=== PATIENT | male | born 1945 | race Caucasian/White ===

== ENCOUNTER 2018-04-27 05:49 | Inpatient (IN) ==
[2018-04-27] MEDS ORDERED: Bupivacaine/Dextrose 0.75% Inj 2 ML Ampul ONE (06:56)
[2018-04-27] MEDS ORDERED: Dexamethasone Inj 20 MG/5 ML Vial ONE (07:05)
[2018-04-27] MEDS ORDERED: Sodium Chlor 0.9% Inj 250 ML ONE (07:05)
[2018-04-27] MEDS ORDERED: Dexamethasone Inj 20 MG/5 ML Vial IV.PUSH ONE (07:12)
[2018-04-27] MEDS ORDERED: Chlorhexidine Gluconate 2% 1 Pack (2 Cloths) TOPICAL SCH (07:15)
[2018-04-27] MEDS ORDERED: Sodium Chlor 0.9% Inj 73.07 ML, Ropivacaine 0.5% PF Inj 24.63 ML, Ketorolac Inj 30 MG, ... P-ARTICULR SCH ×5 (07:15)
[2018-04-27] MEDS ORDERED: Metoprolol Tartrate 25 MG Tablet PO SCH (07:15)
[2018-04-27] MEDS ORDERED: Chlorhexidine 4% Topical 120 APPLIC/120 ML Bottle TOPICAL SCH (07:15)
[2018-04-27] MEDS ORDERED: Bupivacaine Liposomal PF 1.3% Inj 20 ML Vial ONE (07:19)
[2018-04-27] MEDS ORDERED: Propofol Inj 500 MG/50 ML Vial ONE (07:23)
[2018-04-27] MEDS: Vancomycin Inj 1,000 MG in Sodium Chlor 0.9% Inj 250 ML IV.SIG SCH ×2 (07:37→21:20)
[2018-04-27] MEDS ORDERED: ceFAZolin 2 GM Premix Inj 2 GM/100 ML BAG IV.SIG SCH (08:00)
[2018-04-27] MEDS ORDERED: TRANEXAMIC ACID IV.SIG SCH (08:00)
[2018-04-27] MEDS ORDERED: Sodium Chlor 0.9% Inj 500 ML IV.SIG SCH (08:00)
[2018-04-27] MEDS ORDERED: SODIUM CHLOR 0.9% IV.SIG SCH (08:00)
[2018-04-27] MEDS ORDERED: Morphine Inj 4 MG/ML Vial IV.PUSH PRN (10:01)
[2018-04-27] MEDS ORDERED: Aluminum/Magnesium/Simethacone Susp 30 ML UDC PO PRN (10:01)
[2018-04-27] MEDS ORDERED: Post-op Orders (for Pharmacy) OTHER STA (10:01)
[2018-04-27] MEDS ORDERED: Bisacodyl 10 MG Supp RECTAL PRN (10:01)
--- NOTE | 2018-04-27 10:09 | P.OP ---
Preoperative Diagnosis: Left knee severe arthritis. Left femoral shaft fracture, healed. Postoperative Diagnosis: Same Date of procedure: 04/27/18 Procedure: Left total knee arthroplasty Anesthesia: GETA Surgeon: Cody Persaud MD Glass Enamel Mixer: JAYY Alas The surgical procedure was assisted by my Advanced Registered Nurse Practitioner. My BILLET EXAMINER presence was necessary throughout this case for the manipulation and positioning of the surgical extremity. My BILLET EXAMINER was assisting me throughout the duration of this procedure. The skill set of an Advance Registered Nurse Practitioner was medically necessary to complete this procedure. During the surgical case, the cardiovascular surgical tech was working at the back table and the Advance Registered Nurse Practitioner was directly assisting me. Operation and Findings: IMPLANTS: DePuy Attune: Patella: size 38. Femur, posterior stabilized size 7. Tibia, rotating platform size 7. Tibial insert, rotating platform, posterior stabilized size 5 mm thickness. ESTIMATED BLOOD LOSS: 100 cc TOURNIQUET TIME: 50 minutes at 250 mmHg pressure. JUSTIFICATION FOR PROCEDURE: The patient has end-stage osteoarthritis to the knee. There is an attached conservative measures pathway form in the chart that describes the nonoperative measures that were undertaken prior to consideration of surgical management. The patient understood the risks and benefits of surgical management. See my office notes for further details. Additionally note that we created patient specific instrumentation for this patient because he had the previous femur fracture which was midshaft and well-healed but in a displaced position which would have potentially prevented us from obtaining appropriate alignment had we used standard jigs. PROCEDURE: The patient was brought back to the operative theatre. Adequate anesthesia was obtained. The patient received intravenous vancomycin. The patient had no reaction to the vancomycin. Additionally we gave a test dose of Ancef. The patient developed a rash on the forehead with no wheezing per the anesthesia provider. We did not continue with the remaining portion of the Ancef. After the surgery I added Ancef to the patient's list of allergies. The lower extremity was prepped and draped in the usual sterile fashion.The leg was exsanguinated, the tourniquet was raised. A standard anterior incision was performed followed by medial parapatellar arthrotomy was performed. End-stage arthritis was identified. Osteotomy of the patella was performed. We drilled holes for the patella. We trialed the patella component. We placed the patient specific femoral component onto the femur. We use this to create our distal femoral cut. We went between a size 8 and size 7 femoral component. The size 7 gave better anterior to posterior dimensions with the appropriate posterior femoral cut. It was a little small on the medial to lateral portion of the femur. However, we felt that the 8 did not allow us to cut enough posterior femoral condyle so we decided to go with the size 7. We completed the remaining chamfer block cuts and then we also cut the central portion for the PCL as well. The remnants of the ACL and PCL were resected. Osteotomy of the proximal tibia was performed, resecting 5 mm off of the medial side using the patient specific instrumentation. We resected the remnants of the menisci and removed osteophytes off of the femur and tibia. We then trialed the knee. We punched the tibia for the keel, and then used standard technique to cement in components. Excess cement was removed. We trialed the knee again and the final polyethylene thickness was chosen to provide extension to 0 degrees, and flexion of 140 degrees to gravity. The ligaments were appropriately balanced. Lateral release was necessary to obtain excellent patellofemoral tracking. The tourniquet was released and adequate hemostasis was obtained. An intra- articular injection of a ropivacaine cocktail was injected. The posterior knee was inspected for excess cement, which was removed. The final polyethylene was put into position after thorough irrigation. We then closed deep fascia with a #2 Stratafix followed by skin with 2-0 Vicryl followed by Dermabond dressing. Postop plan is to weight-bear as tolerated. DVT prophylaxis will be performed with SCDs, JACY hose, early mobilization, and Lovenox followed by aspirin.
[2018-04-27] MEDS ORDERED: fentaNYL Citrate Inj 100 MCG/2 ML Ampul ONE (10:40)
[2018-04-27] MEDS: Sod Chloride 0.9% Inj 1,000 ML IV.CONT SCH (10:55)
[2018-04-27] MEDS ORDERED: SODIUM CHLOR 0.9% IV.SIG ONE (11:00)
[2018-04-27] MEDS ORDERED: TRANEXAMIC ACID IV.SIG ONE (11:00)
[2018-04-27] MEDS ORDERED: *morphine SULFATE 4 MG/ML PERIprocedure ONLY ONE ×3 (11:04→11:47)
--- NOTE | 2018-04-27 11:09 | XR ---
EXAM DATE: 04/27/2018 11:01 AM EDT AGE/SEX: 72 years / Male INDICATIONS: Post op left knee surgery. CLINICAL DATA: This is the patient's initial encounter. Patient reports that signs and symptoms have been present for 1 day and indicates a pain score of 0/10. MEDICAL/SURGICAL HISTORY: Alzheimer's disease. None. COMPARISON: [facility], CT KNEE W/O CONTRAST, LEFT, 02/01/2018. . FINDINGS: Patient is status post left total knee arthroplasty. Tibial and femoral components appear well seated . There is subcutaneous air identified. Popliteal artery calcifications are seen. CONCLUSION: Postoperative changes are noted. Electronically signed by: Brandon Crandall MD 04/27/2018 11:08 AM EDT
[2018-04-27] MEDS ORDERED: Glycopyrrolate Inj 1 MG/5 ML Syringe IV.PUSH ONE (12:00)
[2018-04-27] MEDS ORDERED: Lidocaine PF 1% Inj 5 ML Syringe INFILTRATN ONE (12:00)
[2018-04-27] MEDS ORDERED: Neostigmine Inj 5 MG/5 ML Syringe IV.PUSH ONE (12:00)
--- NOTE | 2018-04-27 15:32 | P.DCO ---
- Physical Therapy Physical Therapy: Gait training, Transfer training, bed to chair Knee: Total knee Left Lower Extremity Weight Bearing: Weight bearing as tolerated Left Lower Extremity Range of Motion: Active ROM - Nursing Nursing: Elie laguerre Dressing changes: Do not change dressing Additional instructions: First dressing change in the office - Certification Need for Home Health services: I have seen patient Alex Burris Page on 04/27/18. My clinical findings support the need for the requested home health care services because: Need for Home Health Services: Limited ability to care for self, High risk of falls Homebound Certification: I certify that my clinical findings support that this patient is homebound because: Homebound Certification: Post-op weakness, Unsteady gait/balance
[2018-04-27] MEDS ORDERED: Vancomycin Inj 1,000 MG in Sodium Chlor 0.9% Inj 250 ML IV.SIG SCH (16:00)
[2018-04-27 16:52] VITALS: O2SAT 98
[2018-04-27] MEDS ORDERED: Zolpidem Tartrate 5 MG Tablet PO PRN (21:00)
[2018-04-27] MEDS: Senna/Docusate Sodium 8.6/50 MG Tablet PO SCH (21:12)
[2018-04-27] MEDS: Multivitamin/Minerals Therapeutic Tablet PO SCH (21:12)
[2018-04-28 00:29] VITALS: RESP 17
[2018-04-28] MEDS: Sod Chloride 0.9% Inj 1,000 ML IV.CONT SCH ×2 (00:32→11:23)
[2018-04-28 06:04] LABS: Hematocrit 41.8 % (39.0-51.0); Hemoglobin 14.1 gm/dL (13.0-17.0)
[2018-04-28 06:11] VITALS: BP 156/87; PULSE 76
--- NOTE | 2018-04-28 07:14 | P.PNOP ---
Subjective Interval history: The patient is resting in bed comfortably in no acute distress. The patient reports minimal pain to the left knee. The patient states he has been ambulatory. The patient reports he would like to go home today with home health. Physical Exam Vital signs: Vital Signs 04/27/18 07:21 04/27/18 10:32 04/27/18 10:45 Temperature 97.4 F L Pulse Rate 67 78 75 Respiratory Rate 12 13 Blood Pressure 117/70 113/69 Pulse Oximetry 99 100 100 04/27/18 11:00 04/27/18 11:15 04/27/18 11:30 Temperature Pulse Rate 70 73 69 Respiratory Rate 17 13 13 Blood Pressure 119/70 121/73 129/63 Pulse Oximetry 100 98 100 04/27/18 12:00 04/27/18 13:00 04/27/18 14:44 Temperature Pulse Rate 78 81 93 H Respiratory Rate 16 23 24 Blood Pressure 121/67 144/73 H 143/78 H Pulse Oximetry 100 100 100 04/27/18 15:49 04/27/18 16:00 04/27/18 20:00 Temperature 97.9 F 97.4 F L Pulse Rate 92 H 79 77 Respiratory Rate 24 18 18 Blood Pressure 130/70 144/83 H 156/81 H Pulse Oximetry 98 98 04/28/18 00:00 04/28/18 04:00 Temperature 97.3 F L 97.3 F L Pulse Rate 72 76 Respiratory Rate 17 17 Blood Pressure 159/78 H 156/87 H Pulse Oximetry 98 98 Intake & Output 04/27/18 04/28/18 04/28/18 18:59 06:59 18:59 Intake Total 2720.34 / 2720.34 250 / 250 Output Total 700 / 700 575 / 575 Balance 2019.34 / 2019.34 -325 / -325 Weight 81.2 kg Intake: IV 1780.34 / 1780.34 250 / 250 NS Inj 1,000 ML @ 80 mls/hr IV. 314 / 314 CONT .[id number] BETTY Rx#:[id number] LR 1000 mL Inj 1,000 ML @ 30 1000 / 1000 mls/hr IV.SIG .Q24H BETTY Rx#: [id number] Cyklokapron Inj 817 MG In NS 216.34 / 216.34 Inj 100 ML @ 200 mls/hr IV.SIG ONCE ONE Rx#:[id number] Vancomycin Inj 1,000 MG In NS 250 / 250 250 / 250 Inj 250 ML @ 200 mls/hr IV.SIG Q12H BETTY Rx#:[id number] Oral 840 / 840 Anesthesia Amount 100 / 100 Output: Urine 600 / 600 575 / 575 Estimated Blood Loss 100 / 100 Other: # Voids 2 1 Date of Last Bowel Movement 04/26/18 04/27/18 Narrative: The patient's dressing is has small bloody drainage and is intact. EHL/TA/G are intact. 2+ pedal pulse. The patient's calf is soft and nontender. Sensation is intact to light touch distally. Knee immobilizer is in place. Results - Labs CBC & Chem 7: 04/28/18 05:18 Laboratory Results - last 24 hr 04/27/18 04/28/18 06:58 05:18 Hgb 14.1 Hct 41.8 Blood Type A Positive Blood Type Recheck Required Antibody Screen Negative - Imaging Impressions Knee X-Ray 04/27/18 10:02 Patient is status post left total knee arthroplasty. Tibial and femoral components appear well seated. There is subcutaneous air identified. Popliteal artery calcifications are seen. CONCLUSION: Postoperative changes are noted. - Procedures Left total knee arthroplasty Assessment and Plan - Problem List (1) Primary localized osteoarthritis of left knee Code(s): M17.12 - Unilateral primary osteoarthritis, left knee Status: Acute (2) Status post total knee replacement, left Code(s): Z96.652 - Presence of left artificial knee joint Status: Acute - Assessment and Plan POD #1: Left total knee arthroplasty 1. Weightbearing as tolerated on left lower extremity. 2. Lovenox followed by aspirin for DVT prophylaxis. 3. Ice as needed for swelling. 4. Stable per ortho for discharge to home health today. 5. The patient will follow up with Dr. Persaud and/or JAYY Limon as previously scheduled.
[2018-04-28] MEDS ORDERED: Dexamethasone Inj 20 MG/5 ML Vial IV.PUSH ONE (08:00)
[2018-04-28] MEDS: Multivitamin/Minerals Therapeutic Tablet PO SCH (08:08)
[2018-04-28] MEDS: Vancomycin Inj 1,000 MG in Sodium Chlor 0.9% Inj 250 ML IV.SIG SCH ×2 (08:08→08:09)
[2018-04-28] MEDS: Senna/Docusate Sodium 8.6/50 MG Tablet PO SCH (08:09)
[2018-04-28] MEDS ORDERED: amLODIPine 10 MG Tablet PO SCH (09:00)
[2018-04-28] MEDS ORDERED: Pantoprazole Sodium 20 MG DR Tablet PO SCH (09:00)
[2018-04-28] MEDS ORDERED: Enoxaparin Inj 40 MG/0.4 ML Syringe SQ SCH (10:00)
[2018-04-28 10:01] VITALS: TEMP 97.2
--- NOTE | 2018-05-02 12:37 | P.DS ---
Date of admission: 04/27/18 05:49 Primary care physician: Rubén Gardner Attending physician on discharge: Cody Rubio Anticipated date of discharge: 04/28/18 Brief History from admission: The patient was admitted to the hospital for severe left knee osteoarthritis to have a left total knee arthroplasty. DS: Diagnosis - Discharge Diagnosis (1) Primary localized osteoarthritis of left knee Status: Acute (2) Status post total knee replacement, left Status: Acute DS: Summary Hospital Course: The patient was admitted to the hospital for severe osteoarthritis of the left knee to have a left total knee arthroplasty. The patient's surgery went well with no complication. The patient is on a [regular] diet. The patient's DVT prophylaxis includes use of [Lovenox followed by aspirin]. The patient is weightbearing as tolerated. The patient was discharged [home with home health] and will follow up in the office with Dr. Rubio and/or JAYY Limon as previously scheduled. - Time Spent with Patient Total time spent providing and/or coordinating discharge services: Greater than 30 minutes - Quality: VTE Deep Vein Thrombosis/Pulmonary Embolism Present on Admission: No Results Procedures completed during hospitalization: Left total knee arthroplasty - Impressions ITS Impressions Knee X-Ray 04/27/18 10:02 Patient is status post left total knee arthroplasty. Tibial and femoral components appear well seated. There is subcutaneous air identified. Popliteal artery calcifications are seen. CONCLUSION: Postoperative changes are noted. Discharge Plan - Discharge Disposition Patient Disposition: W/Home Health Service - Discharge Condition Condition: Stable - Discharge Order Discharge Orders: Discharge Order (Routine); Ordered 04/27/18 Ordered By: Willian Bennett - Discharge Details Anticipated Discharge Date: 04/28/18 - Physicians Team Primary Care Provider: Rubén Gardner Attending Provider: Cody Rubio Other Providers: Nurse Oncall,Agency ; [employer] - Rxs /Orders / Referrals /Forms Prescriptions: Continue amlodipine 10 mg Tablet 10 mg PO DAILY atorvastatin 80 mg Tablet 80 mg PO DAILY hydrochlorothiazide 50 mg PO DAILY losartan 50 mg Tablet 50 mg PO BID omeprazole 20 mg Capsule,Delayed Release(Dr/Ec) 20 mg PO DAILY Ambulatory Orders / Order Sets / DME: Adjustable Commode 3-in-1 (1 each) (Routine) Location: Determined by Patient Ordered By: Willian Bennett CPM - Continuous Passive Motion Machine (1 each) (Routine) Location: Determined by Patient Ordered By: Willian Bennett Walker With Front Wheels (1 each) (Routine) Location: Determined by Patient Ordered By: Willian Bennett Referrals: Cody Rubio MD [Physician] - See Instructions (F/U in the office with Dr. Rubio or JAYY Limon as previously scheduled.) Rubén Gardner MD [Primary Care Provider] - See Instructions - Discharge Instructions Patient Printed Instructions: Constipation (DC), How to Choose and Use a Walker (GEN), JACY Hose (DC), Knee Replacement (DC) Additional Instructions: PLEASE FOLLOW UP WITH DR. RUBIO ON 05/10/18 AT 1:10PM AT [facility], [address] [place] [address]. [phone] PLEASE CALL IF YOU ARE UNABLE TO KEEP THIS APPOINTMENT AND WILL NEED TO RESCHEDULE. TAKE ALL MEDICATIONS PRESCRIBED BY YOUR DOCTOR. IF YOU HAVE ANY SIGNS AND SYMPTOMS OF INFECTION, PLEASE CALL YOUR DOCTOR AND REPORT BACK TO THE EMERGENCY DEPARTMENT. IT HAS BEEN OUR PLEASURE TO TAKE CARE OF YOU DURING YOUR STAY HERE ON 6N. Your Health Problems: Goals to Promote Your Health: * To prevent worsening of your condition * To maintain your health at the optimal level Directions to Meet Your Goals: * Take your medications as prescribed * Follow your dietary instruction * Follow activity as directed * Keep your appointments as scheduled * Take your immunizations and boosters as scheduled * If your symptoms worsen call your PCP * If no PCP go to Urgent Care or Emergency Room Smoking is dangerous to your health. Avoid second hand smoke. You may reach the 24-hour crisis hotline for domestic abuse at .
== END 2018-04-28 13:15 | disposition home health service (06) ==
LOC: HSDI 05:49 → N06 16:39
PROVIDERS: ADMIT Orthopaedic Surgery; ATTEND Orthopaedic Surgery